=== PATIENT | female | born 1965 | race Caucasian/White ===

== ENCOUNTER → 2016-06-29 | Outpatient (CLI) | payer BC, OTHER ==
[~2016-06-29] MED LIST: MULT-506 PO
== END | disposition home or self-care (01) ==
LOC: C.PAPS 14:24
PROVIDERS: ATTEND Obstetrics & Gynecology
DX: Z01.419 Encounter for gynecological examination (general) (routine) without abnormal findings (principal); N95.2 Postmenopausal atrophic vaginitis

== ENCOUNTER → 2016-10-25 | Outpatient (CLI) | payer BC ==
--- NOTE | 2016-10-25 14:31 | MAMMOGRAPHY REPORT ---
BILATERAL DIGITAL DIAGNOSTIC MAMMOGRAM TOMOSYNTHESIS WITH CAD: 10/25/2016 CLINICAL HISTORY: History of left breast cancer status post lumpectomy. The patient has no current c omplaints. TECHNIQUE: Breast tomosynthesis in addition to standard 2D mammography was performed. Current study was also evaluated with a Computer Aided Detection (CAD) system. Bilateral CC and MLO 2-D and tomosy nthesis images were obtained. COMPARISON: Comparison is made to exams dated: 10/01/2015 mammogram, 09/26/2014 ultrasound, 09/26/2014 mammogram, 09/23/2014 mammogram, 09/24/2013 mammogram, and 09/24/2013 ultrasound - [facility]. BREAST COMPOSITION: The tissue of both breasts is heterogeneously dense, which may obscure small mas ses. FINDINGS: There are no suspicious masses, calcifications, or areas of architectural distortion noted in either breast. There has been no significant interval change compared to prior exams. There are stable postsurgical changes in the left breast from prior lumpectomy, with a linear scar marker denot ing a scar on the left medial breast. Scattered bilateral benign-appearing calcifications are not si gnificantly changed. IMPRESSION: ACR BI-RADS CATEGORY 2: BENIGN There is no mammographic evidence of malignancy in either breast. Recommend routine bilateral mammog jasmin in one year; the patient would prefer to remain a diagnostic patient. The patient has been verb ally notified of the results. Approximately 10% of breast cancers are not detected with mammography. A negative mammographic report should not delay biopsy if a clinically suggestive mass is present. Carrie Hunter M.D. ah/:10/25/2016 11:43:10 Learning Program Manager: Kenia Tucker, [facility] letter sent: Normal 1/2 BI-RADS Code: ACR BI-RADS Category 2: Benign
== END | disposition home or self-care (01) ==
LOC: C.MAMM 11:15
PROVIDERS: ATTEND Obstetrics & Gynecology
DX: C50.919 Malignant neoplasm of unspecified site of unspecified female breast (principal)

== ENCOUNTER → 2017-11-02 | Outpatient (CLI) | payer OTHER ==
--- NOTE | 2017-11-02 14:56 | MAMMOGRAPHY REPORT ---
BILATERAL DIGITAL DIAGNOSTIC MAMMOGRAM TOMOSYNTHESIS WITH CAD: 11/02/2017 CLINICAL HISTORY: 51-year-old woman with a personal history of left breast cancer status post breast conservation treatment presents at time of annual mammography. TECHNIQUE: Bilateral CC and MLO 2D and tomosynthesis images, spot magnification left CC and ML views were obtained. Current study was also evaluated with a Computer Aided Detection (CAD) system. COMPARISON: Comparison is made to exams dated: 10/25/2016 mammogram, 10/01/2015 mammogram, 09/26/2014 m ammogram, 09/23/2014 mammogram, 09/24/2013 ultrasound, and 09/20/2013 mammogram - [facility]. BREAST COMPOSITION: There are scattered areas of fibroglandular density in both breasts. FINDINGS: A linear scar marker overlies the upper inner left breast. There is expected architectural distortion and benign rim/dystrophic calcification at the surgical site. Stable loosely grouped rou nd microcalcifications are also seen in the approximate 9:00 posterior left breast, that are unchange d in number and distribution dating back to at least 2013, likely also 2010. Other similar appearing benign round calcifications are scattered bilaterally. There are stable surgical clips projecting o marcio the left axilla. No new suspicious mass, asymmetry, unexpected architectural distortion or cluste r of microcalcifications is seen. IMPRESSION: ACR BI-RADS CATEGORY 2: BENIGN 1. Stable mammographic appearance of the breasts, without evidence of malignancy. Recommend bilater al mammography in 1 year, and would recommend remaining a diagnostic patient, given the personal hist ory of left breast cancer, in case any additional mammographic views and/or ultrasound may be needed. These results and recommendations were discussed with the patient at the time of the exam. Some breast cancers are not detected with mammography. A negative mammographic report should not steven y biopsy if a clinically suggestive mass is present. Sandy Johnson M.D. ay/:11/02/2017 14:34:07 Technology Resource Teacher: RT Dorita(R)(M), [facility] letter sent: Normal 1/2 BI-RADS Code: ACR BI-RADS Category 2: Benign
== END | disposition home or self-care (01) ==
LOC: C.MAMM 13:47
PROVIDERS: ATTEND Obstetrics & Gynecology
DX: Z12.31 Encounter for screening mammogram for malignant neoplasm of breast (principal); Z85.3 Personal history of malignant neoplasm of breast